=== PATIENT | female | born 1965 | race American Indian/Alaskan Native ===

== ENCOUNTER 2021-05-31 18:21 | Observation (INO) | payer SELFPAY ==
[2021-05-31] MEDS ORDERED: ASPIRIN 325 MG TAB PO ONE (19:09)
--- NOTE | 2021-05-31 19:14 | Emergency Department Report ---
ED Chest Pain HPI - General Chief Complaint: Chest Pain Stated Complaint: chest pains Time Seen by Provider: 05/31/21 19:03 Source: patient Mode of arrival: Stretcher Limitations: No Limitations - History of Present Illness Initial Comments: Patient is 56-year-old female with history of hypertension diabetes. Patient presented to the ER via EMS from home for evaluation of sudden onset of left sided chest pain. Patient stated that pain started while she was resting. Patient described her pain as sharp and tightness at the same time. No radiation. Patient is also complaining of nausea and vomiting. Patient denied any fever or chills. No shortness of breath. MD Complaint: chest pain -: hour(s) Onset: during rest Pain Location: left chest Pain Radiation: none Quality: tightness, sharp Consistency: constant re: nausea, vomting - Related Data Allergies Allergy/AdvReac Type Severity Reaction Status Date / Time No Known Allergies Allergy Verified 05/31/21 18:23 Heart Score - HEART Score History: Moderately suspicious EKG: Non-specific Age: 45-65 Risk factors: > 3 risk factors or hx of atherosclerotic disease Troponin: < normal limit HEART Score: 5 - EKG Read Time Time EKG Completed: 20:49 EKG Read Time: 20:50 - Critical Actions Critical Actions: 4-6 pts:12-16.6% risk of adverse cardiac event. Should be admitted ED Review of Systems ROS: Stated complaint: chest pains Other details as noted in HPI Comment: All other systems reviewed and negative Constitutional: denies: chills, fever Respiratory: denies: cough, shortness of breath, SOB with exertion Cardiovascular: chest pain. denies: palpitations, dyspnea on exertion Gastrointestinal: nausea, vomiting. denies: abdominal pain, diarrhea, constipation, hematemesis, melena, hematochezia Musculoskeletal: denies: back pain Neurological: denies: headache, weakness, numbness, paresthesias, confusion, abnormal gait ED Past Medical Hx - Past Medical History Previous Medical History?: Yes Hx CVA: Yes - Surgical History Past Surgical History?: No - Social History Smoking Status: Unknown if ever smoked ED Physical Exam - General Limitations: No Limitations General appearance: alert, in distress (pain) - Head Head exam: Present: atraumatic, normocephalic, normal inspection - Eye Eye exam: Present: normal appearance, PERRL - ENT ENT exam: Present: normal exam, normal orophraynx, mucous membranes moist - Neck Neck exam: Present: normal inspection, full ROM. Absent: tenderness, meningismus - Respiratory Respiratory exam: Present: normal lung sounds bilaterally - Cardiovascular Cardiovascular Exam: Present: regular rate, normal rhythm, normal heart sounds - GI/Abdominal GI/Abdominal exam: Present: soft, normal bowel sounds. Absent: distended, tenderness, guarding, rebound, rigid, organomegaly, mass, bruit, pulsatile mass, hernia - Extremities Exam Extremities exam: Present: normal inspection, full ROM, normal capillary refill. Absent: tenderness - Back Exam Back exam: Present: normal inspection, full ROM. Absent: CVA tenderness (R), CVA tenderness (L) - Neurological Exam Neurological exam: Present: alert, oriented X3, CN II-XII intact. Absent: motor sensory deficit - Psychiatric Psychiatric exam: Present: normal mood - Skin Skin exam: Present: warm, intact, normal color ED Course Vital Signs 05/31/21 05/31/21 05/31/21 18:23 18:43 19:15 Temperature 97.8 F 97.8 F Pulse Rate 94 H 89 Respiratory 16 16 20 Rate Blood Pressure Blood Pressure 183/85 205/89 [Left] O2 Sat by Pulse 99 97 99 Oximetry 05/31/21 05/31/21 05/31/21 19:28 19:35 20:01 Temperature Pulse Rate 88 88 86 Respiratory Rate Blood Pressure 205/89 193/92 Blood Pressure [Left] O2 Sat by Pulse Oximetry 05/31/21 05/31/21 20:30 22:01 Temperature Pulse Rate 81 76 Respiratory 18 13 Rate Blood Pressure 164/70 196/89 Blood Pressure [Left] O2 Sat by Pulse 99 95 Oximetry ED Medical Decision Making - Lab Data Result diagrams: 05/31/21 19:16 05/31/21 19:16 - EKG Data -: EKG Interpreted by [place] EKG shows normal: sinus rhythm Rate: normal - EKG Data Interpretation: no acute changes - Radiology Data Radiology results: report reviewed - Medical Decision Making Patient is 56-year-old female with history of hypertension diabetes. Patient presented to the ER via EMS from home for evaluation of sudden onset of left sided chest pain. Patient stated that pain started while she was resting. P malou described her pain as sharp and tightness at the same time. No radiation. Patient is also complaining of nausea and vomiting. Patient denied any fever or chills. No shortness of breath. Patient received aspirin 325 mg and nitro x3 with some improvement in her pain. Patient also received morphine for pain. EKG showed no ST elevation. Chest x- ray is unremarkable. Labs reviewed and showed elevated creatinine of 2.7. D- dimer is 400 however VQ scan is showed no suspicious for pulmonary embolism. First troponin is negative. Lipase is elevated to 150. I discussed the patient with Dr. Garrido, he agreed to admit the patient to medical service for further management. Critical Care Time: Yes Critical care time in (mins) excluding proc time.: 35 Critical care attestation.: If time is entered above; I have spent that time in minutes in the direct care of this critically ill patient, excluding procedure time. ED Disposition Clinical Impression: Acute chest pain, Acute pancreatitis Disposition: 02 [facility]ORT TERM [facility]OSP[facility] Is pt being admited?: Yes Condition: Stable Instructions: Chest Pain (ED)
[2021-05-31] MEDS: ONDANSETRON 4 MG/2 ML INJ IV ONE ×2 (19:28→19:30)
[2021-05-31] MEDS: NITROGLYCERIN 0.4 MG TAB SUBL SL ONE ×3 (19:28→20:01)
[2021-05-31 20:10] LABS: Basophils # (Auto) 0.1 K/mm3 (0.0-0.1); Eosinophils # (Auto) 0.2 K/mm3 (0.0-0.4); Eosinophils % (Auto) 2.2 % (0.0-4.3); Hematocrit 28.2 % (30.3-42.9); Lymphocytes # (Auto) 1.7 K/mm3 (1.2-5.4); Lymphocytes % (Auto) 16.9 % (13.4-35.0); Mean Corpuscular HGB Conc 32 % (30-34); Mean Corpuscular Volume 90 fl (79-97); Monocytes # (Auto) 0.3 K/mm3 (0.0-0.8); Platelet Count 542 K/mm3 (140-440); Red Blood Count 3.14 M/mm3 (3.65-5.03); Red Cell Distribution Width 15.2 % (13.2-15.2)
[2021-05-31] MEDS ORDERED: MORPHINE 4 MG/1 ML INJ IV ONE ×2 (20:15→20:40)
[2021-05-31 20:16] LABS: INR 0.88 (0.87-1.13)
[2021-05-31 20:17] LABS: Partial Thromboplastin Time 34.2 Sec. (24.2-36.6)
[2021-05-31 20:19] LABS: Calcium 9.4 mg/dL (8.4-10.2)
[2021-05-31] MEDS ORDERED: INSULIN REGULAR, HUMAN 100 UNITS/1 ML IV ONE (20:43)
--- NOTE | 2021-05-31 20:54 | XRay Report ---
CHEST 1 VIEW 05/31/2021 6:55 PM INDICATION / CLINICAL INFORMATION: Chest Pain. COMPARISON: None available. FINDINGS: SUPPORT DEVICES: None. HEART / MEDIASTINUM: Upper normal size for AP portable technique. LUNGS / PLEURA: No significant pulmonary or pleural abnormality. No pneumothorax. ADDITIONAL FINDINGS: No significant additional findings. IMPRESSION: 1. No acute findings. Signer Name: Donaldo Felton MD Signed: 05/31/2021 8:49 PM Workstation Name: [id number]
--- NOTE | 2021-05-31 21:37 | Cat Scan Report ---
CT ABDOMEN AND PELVIS WITHOUT CONTRAST INDICATION / CLINICAL INFORMATION: ABDOMINAL PAIN. TECHNIQUE: Axial CT images were obtained through the abdomen and pelvis without IV contrast. All CT scans at this location are performed using CT dose reduction for ALARA by means of automated exposure control. COMPARISON: None available. FINDINGS: LOWER CHEST: Right middle lobe and lingular subsegmental atelectasis. LIVER: No significant abnormality. GALLBLADDER: No significant abnormality. PANCREAS: No significant abnormality. SPLEEN: No significant abnormality. ADRENALS: Left adrenal adenoma. RIGHT KIDNEY / URETER: Medullary nephrocalcinosis. No acute abnormality. LEFT KIDNEY / URETER: Medullary nephrocalcinosis. No acute abnormality. STOMACH / SMALL BOWEL: No significant abnormality. COLON: No significant abnormality. APPENDIX: Nonvisualized PERITONEUM: No free fluid, free air or organized collection. LYMPH NODES: No significant adenopathy. AORTA / ARTERIES/ VEINS: Moderate atherosclerotic calcification without acute abnormality. URINARY BLADDER: Moderate urinary bladder distention with trace amount of air noted within the bladde r lumen. REPRODUCTIVE ORGANS: No significant abnormality. ADDITIONAL FINDINGS: None. SKELETAL SYSTEM: No significant abnormality. IMPRESSION: 1. Perianal skin ulceration along the right gluteal cleft with mild subcutaneous inflammatory strand ing. Findings could reflect phlegmonous process. No discrete fluid collection to suggest perianal abs cess. Recommend direct visualization with physical exam. 2. Small amount of air within the urinary bladder. Could reflect recent instrumentation. However, co rrelation with urinalysis is recommended. 3. Other chronic findings as above. Signer Name: Boston Alvarez MD Signed: 05/31/2021 9:33 PM Workstation Name: [id number]
--- NOTE | 2021-05-31 22:49 | Nuclear Medicine Report ---
NM perfusion only lung scan INDICATION / CLINICAL INFORMATION: CHEST PAIN,. TRACER: Technetium 99m MAA 5.2 mCi IV injection. COMPARISON: Chest x-ray earlier the same day. FINDINGS: Perfusion imaging only was performed. Perfusion is relatively homogeneous. Negative for suspicious pe rfusion defect. IMPRESSION: No suspicious perfusion defect. Signer Name: Naeem Reese MD Signed: 05/31/2021 10:45 PM Workstation Name: [id number]
[2021-05-31] MEDS ORDERED: traMADol 50 MG TAB PO PRN (23:12)
[2021-05-31] MEDS ORDERED: DEXTROSE 50% IN WATER (25GM) 50 ML SYRINGE IV PRN (23:12)
[2021-05-31] MEDS ORDERED: MORPHINE 4 MG/1 ML INJ IV PRN (23:12)
[2021-05-31] MEDS ORDERED: ACETAMINOPHEN 325 MG TAB PO PRN (23:12)
--- NOTE | 2021-05-31 23:19 | History and Physical Report ---
History of Present Illness Date of examination: 05/31/21 Date of admission: 05/31/21 Chief complaint: Chest pain History of present illness: 56-year-old female with history of hypertension and diabetes was brought to the emergency room from home for evaluation of sudden onset of left sided chest pain. Patient stated that pain started while she was resting. Patient described her pain as sharp and tightness 5-6/10 No radiation. Patient is also complaining of nausea and vomiting. Patient denied any fever or chills. No shortness of breath. Patient received aspirin 325 mg and nitro x3 with some improvement in her pain. Patient also received morphine for pain. EKG showed no ST elevation. Chest x-ray is unremarkable. Labs reviewed and showed elevated creatinine of 2.7. D-dimer is 400 however VQ scan is showed no suspicious for pulmonary embolism. First troponin is negative. Lipase is elevated to 150. Med rec is not available Past History Past Medical History: diabetes, hypertension Medications and Allergies Allergies Allergy/AdvReac Type Severity Reaction Status Date / Time No Known Allergies Allergy Verified 05/31/21 18:23 Review of Systems All systems: negative Cardiovascular: chest pain Gastrointestinal: nausea, vomiting Exam - Constitutional Vitals: Temp Pulse Resp BP Pulse Ox 97.8 F 76 13 196/89 95 05/31/21 19:15 05/31/21 22:01 05/31/21 22:01 05/31/21 22:01 05/31/21 22:01 General appearance: Present: no acute distress, well-nourished - EENT Eyes: Present: PERRL ENT: hearing intact, clear oral mucosa - Neck Neck: Present: supple, normal ROM - Respiratory Respiratory effort: normal Respiratory: bilateral: diminished - Cardiovascular Heart Sounds: Present: S1 & S2. Absent: rub, click - Extremities Extremities: pulses symmetrical, No edema Peripheral Pulses: within normal limits - Abdominal General gastrointestinal: Present: soft, non-tender, non-distended, normal bowel sounds Female genitourinary: Present: normal - Integumentary Integumentary: Present: clear, warm, dry - Musculoskeletal Musculoskeletal: gait normal, strength equal bilaterally - Psychiatric Psychiatric: appropriate mood/affect, intact judgment & insight - Neurologic Neurologic: CNII-XII intact, moves all extremities HEART Score - HEART Score EKG: Non-specific Age: 45-65 Risk factors: > 3 risk factors or hx of atherosclerotic disease Troponin: Troponin T 0.011 ng/mL (0.00-0.029) 05/31/21 19:16 Troponin: < normal limit - Critical Actions Critical Actions: 4-6 pts:12-16.6% risk of adverse cardiac event. Should be admitted Results - Labs CBC & Chem 7: 05/31/21 19:16 05/31/21 19:16 Labs: Laboratory Last Values WBC 10.2 K/mm3 (4.5-11.0) 05/31/21 19:16 RBC 3.14 M/mm3 (3.65-5.03) L 05/31/21 19:16 Hgb 9.0 gm/dl (10.1-14.3) L 05/31/21 19:16 Hct 28.2 % (30.3-42.9) L 05/31/21 19:16 MCV 90 fl (79-97) 05/31/21 19:16 MCH 29 pg (28-32) 05/31/21 19:16 MCHC 32 % (30-34) 05/31/21 19:16 RDW 15.2 % (13.2-15.2) 05/31/21 19:16 Plt Count 542 K/mm3 (140-440) H 05/31/21 19:16 Lymph % (Auto) 16.9 % (13.4-35.0) 05/31/21 19:16 [place]ern % (Auto) 3.0 % (0.0-7.3) 05/31/21 19:16 Eos % (Auto) 2.2 % (0.0-4.3) 05/31/21 19:16 Baso % (Auto) 1.0 % (0.0-1.8) 05/31/21 19:16 Lymph # (Auto) 1.7 K/mm3 (1.2-5.4) 05/31/21 19:16 [place]ern # (Auto) 0.3 K/mm3 (0.0-0.8) 05/31/21 19:16 Eos # (Auto) 0.2 K/mm3 (0.0-0.4) 05/31/21 19:16 Baso # (Auto) 0.1 K/mm3 (0.0-0.1) 05/31/21 19:16 Seg Neutrophils % 76.9 % (40.0-70.0) H 05/31/21 19:16 Seg Neutrophils # 7.8 K/mm3 (1.8-7.7) H 05/31/21 19:16 PT 12.9 Sec. (12.2-14.9) 05/31/21 19:16 INR 0.88 (0.87-1.13) 05/31/21 19:16 APTT 34.2 Sec. (24.2-36.6) 05/31/21 19:16 D-Dimer 400.89 ng/mlDDU (0-234) H 05/31/21 19:16 Sodium 139 mmol/L (137-145) 05/31/21 19:16 Potassium 5.2 mmol/L (3.6-5.0) H 05/31/21 19:16 Chloride 106.2 mmol/L (98-107) 05/31/21 19:16 Carbon Dioxide 14 mmol/L (22-30) L 05/31/21 19:16 Anion Gap 24 mmol/L 05/31/21 19:16 BUN 37 mg/dL (7-17) H 05/31/21 19:16 Creatinine 2.7 mg/dL (0.6-1.2) H 05/31/21 19:16 Estimated GFR 22 ml/min 05/31/21 19:16 BUN/Creatinine Ratio 14 % 05/31/21 19:16 Glucose 319 mg/dL (65-100) H 05/31/21 19:16 POC Glucose 263 mg/dL (70-105) H 05/31/21 20:50 Calcium 9.4 mg/dL (8.4-10.2) 05/31/21 19:16 Troponin T 0.011 ng/mL (0.00-0.029) 05/31/21 19:16 Lipase 150 units/L (13-60) H 05/31/21 19:16 Plasma/Serum Alcohol < 0.01 % (0-0.07) 05/31/21 20:45 - Imaging and Cardiology Chest x-ray: report reviewed CT scan - abdomen: report reviewed Assessment and Plan VTE prophylaxis?: Chemical Plan of care discussed with patient/family: Yes - Patient Problems (1) Acute coronary syndrome Current Visit: Yes Status: Resolved Plan to address problem: Admit the patient to the medical telemetry. Aspirin 81 mg p.o. daily. Lipitor 40 mg p.o. daily. Nitroglycerin as needed. We do the serial cardiac enzymes. Echocardiogram. Consult cardiology if needed (2) JUDITH (acute kidney injury) Current Visit: Yes Status: Acute Plan to address problem: Avoid nephrotoxic drug. Normal saline at the rate of 100 cc/h. Renally dose medication. Recheck BMP in the morning (3) Hypertension Current Visit: Yes Status: Acute Plan to address problem: Hydralazine 10 mg IV every 6 hours as needed. We will continue the home medication. We will monitor the blood pressure closely (4) Acute pancreatitis Current Visit: Yes Status: Acute Plan to address problem: NPO. Normal saline at the rate of 100 cc/h. Protonix 40 mg p.o. daily. Zofran 4 million IV every 6 hours as needed. We will monitor the patient closely (5) DVT prophylaxis Current Visit: Yes Status: Acute Plan to address problem: Heparin 5000 units subcu every 8 hours for DVT prophylaxis. Protonix 40 mg p.o. daily for GI prophylaxis. Patient is a full code
[2021-05-31] MEDS: INSULIN LISPRO 100 UNIT/ML SUB-Q SCH (23:45)
[2021-05-31] MEDS: NITROGLYCERIN 0.4 MG TAB SUBL SL PRN (23:59)
[2021-06-01] MEDS: NITROGLYCERIN 0.4 MG TAB SUBL SL PRN (00:04)
[2021-06-01] MEDS: SODIUM CHLORIDE 0.9% 1000 ML 1,000 ML IV SCH ×2 (03:04→13:15)
[2021-06-01 04:52] LABS: Basophils # (Auto) 0.1 K/mm3 (0.0-0.1); Basophils % (Auto) 0.7 % (0.0-1.8); Eosinophils % (Auto) 0.4 % (0.0-4.3); Hematocrit 26.5 % (30.3-42.9); Hemoglobin 8.5 gm/dl (10.1-14.3); Lymphocytes # (Auto) 1.6 K/mm3 (1.2-5.4); Lymphocytes % (Auto) 15.9 % (13.4-35.0); Mean Corpuscular HGB Conc 32 % (30-34); Mean Corpuscular Volume 90 fl (79-97); Monocytes # (Auto) 0.2 K/mm3 (0.0-0.8); Monocytes % (Auto) 2.3 % (0.0-7.3); Platelet Count 498 K/mm3 (140-440); Red Blood Count 2.96 M/mm3 (3.65-5.03)
[2021-06-01 04:56] LABS: Calcium 9.4 mg/dL (8.4-10.2)
[2021-06-01] MEDS: INSULIN LISPRO 100 UNIT/ML SUB-Q SCH ×3 (05:59→17:03)
[2021-06-01] MEDS: HEPARIN 5,000 UNIT/1 ML VIAL SUB-Q SCH ×2 (05:59→13:11)
[2021-06-01] MEDS: INSULIN REGULAR, HUMAN 100 UNITS/1 ML IV NR ×2 (08:58→10:04)
[2021-06-01] MEDS: hydrALAZINE 20 MG/1 ML INJ IV SCH ×3 (08:59→17:03)
[2021-06-01] MEDS ORDERED: PANTOPRAZOLE 40 MG TAB PO SCH (10:00)
[2021-06-01] MEDS ORDERED: ASPIRIN 81 MG TAB CHEW PO SCH (10:00)
[2021-06-01] MEDS ORDERED: NIFEdipine XL 30 MG TAB PO SCH (10:00)
[2021-06-01] MEDS ORDERED: LISINOPRIL 20 MG TAB PO SCH (10:00)
--- NOTE | 2021-06-01 10:44 | Electrocardiograph Report ---
[facility] Test Date: 2021-05-31 Test Time: 20:49:16 Pat Name: CINDY AUGUSTIN Department: Room: A480 Gender: F Didactic Instructor: : 1965 Requested By: BEST ESTEVEZ Order Number: [id number] Reading MD: Qamar Perry Measurements Intervals [place] Rate: 81 P: 68 PA: 212 QRS: 52 QRSD: 94 T: 66 QT: 416 QTc: 484 Interpretive Statements Sinus rhythm Prolonged PA interval No previous ECG available for comparison Electronically Signed On 06-01-2021 10:44:05 EST by Qamar Perry
[2021-06-01 13:17] LABS: Calcium 9.1 mg/dL (8.4-10.2)
--- NOTE | 2021-06-01 15:11 | Discharge Summary ---
Providers - Providers Date of Admission: 05/31/21 23:12 Date of discharge: 06/01/21 Attending physician: CHAYO MCCORMICK MD 05/31/21 Consult to Cardiac Rehabilitation [CONS] Routine Reason For Exam: Phase I 05/31/21 23:12 Consult to Dietitian/Nutrition [CONS] Routine Physician Instructions: Reason For Exam: Reason for Consult: Diet education Primary care physician: MARBLE SETTER HELPER Hospitalization Reason for admission: Acute coronary syndrome Condition: Stable Pertinent studies: Reviewed. Procedures: Pulmonary perfusion scan Hospital course: Patient is a 56-year-old female past medical history of hypertension, diabetes mellitus type 2, hyperlipidemia, and prior CVA who presented with acute onset of left-sided chest pain that started at rest. The patient was evaluated in the emergency room and received ASA 325 mg and nitroglycerin sublingual x3 with improvement in her pain. Troponins were negative x3. Chest x-ray was unremarkable. VQ scan was performed due to D-dimer being 400, and there is low clinical suspicion for pulmonary embolism. The patient underwent TTE that revealed normal LV systolic function with an EF of 55-60%. TTE also revealed mild diastolic dysfunction. The patient was counseled about lifestyle changes including dietary changes, weight loss, and incorporating exercise. The patient expressed understanding. Patient is safe for medical discharge. Patient will follow up with PCP. Disposition: 01 HOME / SELF CARE / HOMELESS Final Discharge Diagnosis (Prints w/discharge instructions): Atypical chest pain, hypertension, diabetes mellitus type 2, prior CVA, hyperkalemia, and normocytic anemia Time spent for discharge: 45 minutes Core Measure Documentation - Palliative Care Palliative Care/ Comfort Measures: Not Applicable - Core Measures Any of the following diagnoses?: history only - VTE Discharge Requirements Deep Vein Thrombosis/Pulmonary Embolism Present on Admission: No Has pt received <5 days of overlap therapy or INR<2.0: No (Not indicated) Anticoagulant overlap therapy prescribed at discharge: No Contraindication No Overlap Therapy order at DC: Not Indicated - Acute [place] Discharge Requirements Aspirin at discharge: Yes KENNETH/ARB for LVSD if EF <40%: Yes Beta carlita at discharge: Yes Statin for LDL = or >100 mg/dl on DC: Yes - Heart Failure Discharge Requirements KENNETH/ARB for LVSD if EF <40%: Yes Beta carlita at discharge: Yes - Stroke Discharge Requirements Statin for LDL = or >70 mg/dl on DC: Yes Anticoag for atrial fib/atrial flutter: Not Applicable Reason for no anticoag for AF/F on DC: Not Indicated Antithrombotic for ischemic stroke: No Reason for no antithrombotic on DC: Not Indicated Exam - Constitutional Vitals: Temp Pulse Resp BP Pulse Ox 98.0 F 68 16 186/73 96 06/01/21 11:32 06/01/21 14:00 06/01/21 14:00 06/01/21 11:32 06/01/21 14:55 General appearance: Present: no acute distress, well-nourished - EENT Eyes: Present: PERRL, EOM intact ENT: hearing intact, clear oral mucosa, dentition normal - Neck Neck: Present: supple, normal ROM - Respiratory Respiratory effort: normal Respiratory: bilateral: CTA - Cardiovascular Rhythm: regular Heart Sounds: Present: S1 & S2 - Extremities Extremities: no ischemia, pulses intact, pulses symmetrical, No edema, normal temperature, normal color Peripheral Pulses: within normal limits - Abdominal General gastrointestinal: Present: soft, non-tender, non-distended, normal bowel sounds Female genitourinary: Present: deferred - Rectal Rectal Exam: deferred - Integumentary Integumentary: Present: clear, warm, dry - Musculoskeletal Musculoskeletal: strength equal bilaterally - Psychiatric Psychiatric: appropriate mood/affect, intact judgment & insight, memory intact, cooperative - Neurologic Neurologic: CNII-XII intact, moves all extremities - Allied Health Allied health notes reviewed: nursing Plan Activity: no restrictions Diet: low salt, diabetic Care Plan Goals: Patient safe for medical discharge. Assessment: Patient was admitted for management of acute coronary syndrome. Patient was found to have troponin negative x3, and a TTE revealed EF 55-60% with normal LV function. Patient was counseled about lifestyle changes such as dietary changes, weight loss, and incorporating exercise. Patient expressed understanding. Patient being discharged with PCP follow-up. Follow up with: PRIMARY MD VERÓNICA [Primary Care Provider] - 10 Days JESSEE BANGURA MD [Staff Physician] - 10 Days (Post hospitalization for atypical chest pain (negative troponins x3 and TTE). Patient is established PCP care.) Prescriptions: AtorvaSTATin [Lipitor] 40 mg PO QHS #30 tablet Aspirin [Aspirin BABY CHEW TAB] 81 mg PO QDAY #30 tab.chew Nitroglycerin [Nitrostat] 0.4 mg SL Q5M PRN #30 tablet PRN Reason: Chest Pain NIFEdipine XL [Procardia Xl] 30 mg PO QDAY #30 tablet lisinopriL [Zestril TAB] 20 mg PO QDAY #30 tablet
[2021-06-01 16:12] VITALS: BP 157/66
== END 2021-06-01 17:30 | disposition home or self-care (01) ==
LOC: ED 18:21 → 4A 23:12
PROVIDERS: ADMIT Hospitalist; ATTEND Student in an Organized Health Care Education/Training Program
DX: I24.9 Acute ischemic heart disease, unspecified (principal); R07.89 Other chest pain; N17.9 Acute kidney failure, unspecified; I10 Essential (primary) hypertension; K85.90 Acute pancreatitis without necrosis or infection, unspecified; E11.9 Type 2 diabetes mellitus without complications
CPT/HCPCS: 36415; 71045; 74176; 78580; 80048; 82962; 83690; 84484; 85025; 85379; 85610; 85730; 93005; 93306; 96361; 96372; 96374; 96375; 96376; 99291; A9540; G0378; J0360; J1644; J2270; J2405; J7030; 80320; Q0162; Q9967; G0480; J1815